=== PATIENT | male | born 1980 | race Caucasian/White ===

== ENCOUNTER 2020-03-25 19:47 | Emergency (ER) | payer OTHER ==
[~2020-03-25] VITALS: Ht 177.8 cm; Wt 90.7 kg
[2020-03-25] MEDS ORDERED: CLEOCIN HCL300 MG PO (20:43)
[2020-03-25] MEDS ORDERED: NORCO 5-325 TA1 EAC1 PO (20:43)
[2020-03-25 20:55] VITALS: BP 134/90
== END 2020-03-25 20:55 | disposition home or self-care (01) ==
LOC: M.ERS 19:47
DX: K04.7 Periapical abscess without sinus (principal); J45.909 Unspecified asthma, uncomplicated; Z88.0 Allergy status to penicillin